=== PATIENT | male | born 1965 | race Caucasian/White ===

== ENCOUNTER 2025-03-28 09:07 | Outpatient (RCR) | payer MEDICAID, SELFPAY ==
--- NOTE | 2025-03-28 09:39 | PTNOTE_ITS ---
PT OP Initial Eval Patient Information Outpatient Physical Therapy Treatment Date: 03/28/25 Visit Reasons: RIGHT SHOULDER SURGERY Medical Diagnosis: S43.431D Z47.89 M25.511 Treatment Dx #1: R shoulder pain Treatment Dx #2: Decreased R shoulder ROM Start of Care: 03/28/25 Date of Onset: 02/14/25 Smoking Status Smoking Status: Never smoker Initial Assessment Subjective: Pt is 59 yr old male s/p R shoulder SAD, SLAP debridement, acromioplasty debridement of tears, transtendinous repair supraspinatus tendon, biceps tenodesis. He is moving the R shoulder with low pain level but it hurts reaching up to the side. PMH: CVA, HTN, A-fib Pt goal: to reach up and not hurt? Objective: R shoulder ArOM: FF: 90 deg Abd: 90 deg limited by pain ER: 78 deg Strength: NT Assessment: Pt presentation consistent wtih referring Dx with decreased ROM, strength and function of R shoulder. Pt requires skilled therapy to meet goals and has fair rehab potential. Short Term and Foam Cutting Supervisor Goals 1. Ind with HEP ? 2. Improved AROM of R shoulder to at least 135 deg FF, 125 deg abduction and 90 deg ? ER ? 3. Improved HBB ROM to L3 4. Pt will reach OH x10 with <=4/10 pain Treatment Plan ? 1. Manual therapy ? 2. Therex ? 3. Modalities as indicated, moist heat, ice, estim Frequency and Duration: 2x a week for 8 weeks Certification Dates: 03/28/25 to 06/28/25 Procedure Charges OP PT Eval Mod Complex 30 minutes: Yes
== END 2025-04-01 23:59 | disposition home or self-care (01) ==
LOC: CPTX 09:07
PROVIDERS: PCP Orthopaedic Surgery; Referring Provider Orthopaedic Surgery; Visit Provider Orthopaedic Surgery
DX: M25.511 Pain in right shoulder (principal); S43.431D Superior glenoid labrum lesion of right shoulder, subsequent encounter; X58.XXXD Exposure to other specified factors, subsequent encounter; I10 Essential (primary) hypertension
CPT/HCPCS: 97162

== ENCOUNTER 2025-05-01 09:00 | Outpatient (RCR) | payer MEDICAID, SELFPAY ==
--- NOTE | 2025-04-04 17:48 | PT.ODAYNRPT ---
PT Outpatient Daily Note OP Daily Note Outpatient Physical Therapy Treatment Date: 04/04/25 Visit Reasons: right shoulder surgery Subjective: Pain with abduction Objective: See F/S for therex Assessment: Pain limits abduction ROM with AAROM therex to about 90 deg Plan: Continue per POC Length of Time (minutes) of Treatment: 30 Minutes Procedure Charges Therapeutic Exercise 30 minutes: Yes
--- NOTE | 2025-04-06 09:48 | PT.ODAYNRPT ---
PT Outpatient Daily Note OP Daily Note Outpatient Physical Therapy Treatment Date: 04/06/25 Visit Reasons: right shoulder surgery Subjective: Pain with abduction Objective: See F/S for therex MT: PROM into FF and abduction x7' PROM: FF: 110 deg Assessment: Pain limits abduction ROM with AAROM therex to about 90 deg. Plan: Continue per POC Length of Time (minutes) of Treatment: 30 Minutes Procedure Charges Therapeutic Exercise 30 minutes: Yes
--- NOTE | 2025-04-11 09:49 | PT.ODAYNRPT ---
PT Outpatient Daily Note OP Daily Note Outpatient Physical Therapy Treatment Date: 04/11/25 Visit Reasons: right shoulder surgery Subjective: Pt reports R shoulder is moving better but still painful. Objective: Please see flow sheet for ther ex list. Assessment: Isometric shoulder interventions completed with minimal pain. Plan: Assess response to treatment. Length of Time (minutes) of Treatment: 30 Minutes Procedure Charges Therapeutic Exercise 30 minutes: Yes
--- NOTE | 2025-04-13 09:42 | PT.ODAYNRPT ---
PT Outpatient Daily Note OP Daily Note Outpatient Physical Therapy Treatment Date: 04/13/25 Visit Reasons: right shoulder surgery Subjective: Pt reports shoulder has been hurting. Objective: Please see flow sheet for ther ex list. Assessment: Continue with focus on restoring ROM within protocol. Plan: Continue with POC. Length of Time (minutes) of Treatment: 30 Minutes Procedure Charges Therapeutic Exercise 30 minutes: Yes
--- NOTE | 2025-04-25 10:15 | PT.ODAYNRPT ---
PT Outpatient Daily Note OP Daily Note Outpatient Physical Therapy Treatment Date: 04/25/25 Visit Reasons: right shoulder surgery Subjective: Pain with reaching to the side into abduction Objective: See F/S for therex PROM: FF: 110 deg Assessment: Pain limits abduction ROM with AAROM therex to about 90 deg. Plan: Continue per POC Length of Time (minutes) of Treatment: 30 Minutes Procedure Charges Therapeutic Exercise 30 minutes: Yes
--- NOTE | 2025-04-27 10:07 | PT.ODAYNRPT ---
PT Outpatient Daily Note OP Daily Note Outpatient Physical Therapy Treatment Date: 04/27/25 Visit Reasons: right shoulder surgery Subjective: Pt reports his shoulder continues to be painful and weak, difficulty reaching over head. Objective: Please see flow sheet for ther ex list. Assessment: Pt demonstrates poor RTC muscle recruitment. Plan: Continue with POC. Length of Time (minutes) of Treatment: 30 Minutes Procedure Charges Therapeutic Exercise 30 minutes: Yes
--- NOTE | 2025-05-01 09:58 | PT.ODAYNRPT ---
PT Outpatient Daily Note OP Daily Note Outpatient Physical Therapy Treatment Date: 05/01/25 Visit Reasons: right shoulder surgery Subjective: Pain with reaching to the side into abduction Objective: See F/S for therex PROM: FF: 110 deg Assessment: Slow progress with goals due to pain and tightness limits all ROM. Plan: Continue per POC Length of Time (minutes) of Treatment: 30 Minutes Procedure Charges Therapeutic Exercise 30 minutes: Yes
== END 2025-05-01 23:59 | disposition home or self-care (01) ==
LOC: CPTX 09:00
PROVIDERS: PCP Orthopaedic Surgery; Referring Provider Orthopaedic Surgery; Visit Provider Orthopaedic Surgery
DX: M25.511 Pain in right shoulder (principal); S43.431D Superior glenoid labrum lesion of right shoulder, subsequent encounter; X58.XXXD Exposure to other specified factors, subsequent encounter; I10 Essential (primary) hypertension
CPT/HCPCS: 97110

== ENCOUNTER 2025-05-15 09:29 | Outpatient (RCR) | payer MEDICAID, SELFPAY ==
--- NOTE | 2025-05-15 11:41 | PT.ODAYNRPT ---
PT Outpatient Daily Note OP Daily Note Outpatient Physical Therapy Treatment Date: 05/15/25 Visit Reasons: right shoulder surgery Subjective: Pain with reaching to the side into abduction Objective: See F/S for therex PROM: FF: 110 deg Abd: 95 deg Assessment: Slow progress with goals due to pain and tightness limits all ROM. Plan: Continue per POC Length of Time (minutes) of Treatment: 30 Minutes Procedure Charges Therapeutic Exercise 30 minutes: Yes
--- NOTE | 2025-06-06 09:26 | PT.ODS1RPT ---
PT OP Progress/Discharge Note Date of Service: 06/06/25 Progress Note/DC Note Progress Note/Discharge Note: DC Note Patient Information Visit Reasons: right shoulder surgery Service Continue Service or Discharge: Discharge Discharge Date: 06/06/25 Status Assessment: Pt attended the initial evaluation and 8 Rx visits and then called to say he fell and hurt his back and MD recommended to stop therapy at this time. Thank you for your referrals. Plan: D/C
== END 2025-06-01 23:59 | disposition home or self-care (01) ==
LOC: CPTX 09:29
PROVIDERS: PCP Orthopaedic Surgery; Referring Provider Orthopaedic Surgery; Visit Provider Orthopaedic Surgery
DX: M25.511 Pain in right shoulder (principal); S43.431D Superior glenoid labrum lesion of right shoulder, subsequent encounter; X58.XXXD Exposure to other specified factors, subsequent encounter; I10 Essential (primary) hypertension
CPT/HCPCS: 97110

== ENCOUNTER 2025-05-18 08:20 | Emergency (ER) | payer MEDICAID, SELFPAY ==
[2025-05-18 08:21] VITALS: BMI 32.3
[2025-05-18 08:27] VITALS: BP 138/90; PULSE 49; RESP 18; TEMP 36.5; O2SAT 97
--- NOTE | 2025-05-18 08:34 | XR_ITS ---
Examination: CT right hip, pelvis, without contrast. 2-D sagittal reconstructions. 2-D coronal reconstructions. 3-D reconstructions. Date and time of exam:May 18, 2025 0902 hours INDICATIONS: Patient fell today with injury to the right hip, right hip pain CTDI: vol (mGy):8.75 DLP: (mGycm):1077 Technique: Multiple 1.25 mm axial sections of the pelvis right hip have been obtained. 2-D sagittal and coronal reconstructions have been obtained. 3-D reconstructions have been obtained. Low dose protocols were performed. One or more of the following dose reduction techniques were used; automated exposure control, adjustment of the mA and/or KV according to patient size, use of iterative reconstruction technique. Findings: Iliac bones acetabular regions anterior rami intact No acute hip fractures Large fat-containing anterior abdominal wall hernia defect Urinary bladder intact No soft tissue hematoma depicted IMPRESSION: No acute hip or pelvic fracture
--- NOTE | 2025-05-18 08:34 | XR_ITS ---
Examination:Right hip AP, lateral, AP pelvis 3 views Technique: Hip AP lateral, AP pelvis, 3 views Exam date and time:May 18, 2025 0840 hours INDICATIONS: Patient fell today with into the right hip, right hip pain. FINDINGS: No right hip fracture or dislocation. Left hip bones of the pelvis intact IMPRESSION: No acute hip or pelvic fracture..
--- NOTE | 2025-05-18 09:29 | PD.EDBACK ---
ED Back Injury Pain RME/HPI General Chief Complaint: Back Pain/Injury Stated Complaint: LOWER BACK PAIN S/P FALL LAST NIGHT Time Seen by Provider: 05/18/25 08:35 Arrival date/time: 05/18/25 08:20 59-year-old male who presents to the Emergency Department a significant slip and fall last night patient worsening his right hip patient reports he was not dizzy no chest pain to the fall or after the fall. Patient reports no neck pain and no head or neck injury. Limitations: no limitations Related Data Home Medications ?Medication ?Instructions ?Recorded ?Confirmed gabapentin 300 mg capsule 300 mg PO BID PRN Pain 01/14/22 08/25/23 omeprazole 20 mg capsule,delayed 40 mg PO QDAY 01/14/22 08/25/23 release acetaminophen 650 mg 650 mg PO TID PRN Pain 01/15/23 08/25/23 tablet,extended release famotidine 40 mg tablet 40 mg PO HS 01/15/23 08/25/23 hydrocodone 5 mg-acetaminophen 325 1 tab PO TID PRN Pain 08/25/23 08/25/23 mg tablet linaclotide 145 mcg capsule 145 mcg PO QDAY 08/25/23 08/25/23 (Linzess) Allergies Allergy/AdvReac Type Severity Reaction Status Date / Time No Known Allergies Allergy Verified 05/18/25 08:24 Review of Systems Review of Systems Systems Reviewed: All systems reviewed, normal except as documented Constitutional Constitutional: Reports system reviewed and no additional complaints, except as documented, Denies fever(s) and Denies headache(s) Eyes Eyes: Reports system reviewed and no additional complaints, except as documented and Denies blurry vision ENT Ears, Nose, Mouth, and Throat: Reports system reviewed and no additional complaints, except as documented, Denies headache(s), Denies nasal congestion and Denies nasal discharge Cardiovascular Cardiovascular: Reports system reviewed and no additional complaints, except as documented, Denies chest pain and Denies dyspnea Respiratory Respiratory: Reports system reviewed and no additional complaints, except as documented, Denies chest congestion, Denies cough and Denies dyspnea Gastrointestinal Gastrointestinal: Reports system reviewed and no additional complaints, except as documented and Denies abdominal pain Musculoskeletal Musculoskeletal: Reports system reviewed and no additional complaints, except as documented, Denies abnormal gait, Reports arthralgias (Right hip pain), Denies back pain, Denies deformity, Denies numbness, Reports stiffness and Denies tingling Integumentary/Breasts Skin/Breast: Reports system reviewed and no additional complaints, except as documented and Denies rash Neurologic Neurologic: Reports system reviewed and no additional complaints, except as documented, Reports as per HPI, Denies abnormal gait, Denies headache(s), Denies numbness and Denies tingling Past Medical History Past Medical History NEUROLOGIC: Positive Traumatic Brain Injury; Negative Neurological Disorders, Cerebrovascular Accident, Alzheimer's Disease or Seizures CARDIAC: Positive Cardiac Disorders, Hypercholesterolemia and Hypertension; Negative Myocardial Infarction, Angina or Congestive Heart Failure RESPIRATORY: Positive Asthma; Negative Chronic Obstructive Pulmonary Disease (COPD) or Emphysema GASTROINTESTINAL: Positive Gastrointestinal Disorders, Gall Bladder Disease, Gastroesophageal Reflux Disease and Obesity; Negative Liver Cancer or Hepatitis GENITOURINARY: Positive Kidney Stones; Negative Genitourinary Disorders or Renal Disease REPRODUCTIVE: Negative Fibroids MUSCULOSKELETAL: Positive Musculoskeletal Disorders and Arthritis; Negative Muscular Dystrophy ENT: Negative Blind or Deafness ENDOCRINE: Negative Endocrine Disorders, Diabetes Mellitus Type 1 or Diabetes Mellitus Type 2 HEMATOLOGIC: Negative Sickle Cell Disease OTHER HISTORY: Negative Down Syndrome, Developmental Delay, Blood Transfusions, Blood Transfusion Reaction or Anesthesia Reactions Family History FAMILY HISTORY: Positive Family Cardiac Disorders (HTN, NM) Surgical History SURGICAL: Positive Abdominal Surgery Social History SMOKING STATUS: Never smoker SUBSTANCE USE: marijuana ED Exam General Limitations: Present no limitations General appearance: Present alert and in no apparent distress Head Head exam: Present atraumatic Eye Eye exam: Present normal appearance, PERRL and EOMI ENT ENT exam: Present normal exam, normal oropharynx and mucous membranes moist Neck Neck exam: Present normal inspection, full ROM and trachea midline Chest Chest inspection: Present normal inspection and symmetric chest wall rise Respiratory Respiratory exam: Present normal lung sounds bilaterally Cardiovascular Cardiovascular exam: Present regular rate, normal rhythm and normal heart sounds Abdominal Exam Abdominal exam: Present soft and normal bowel sounds; Absent distention or tenderness Extremities Exam Extremities exam: Present full ROM, tenderness, normal capillary refill and other (Right hip pain) Back Exam Back exam: Present normal inspection and full ROM Neurological Exam Neurological exam: Present alert, oriented X3, CN II-XII intact, normal gait and reflexes normal; Absent motor sensory deficit Psychiatric Psychiatric exam: Present normal affect and normal mood Skin Skin exam: Present warm, dry, intact and normal color Course Quality Measures none Orders Category Date Time Status CT hip RT wo con Stat Exams 05/18/25 08:34 Completed XR hip RT w pelvis 2-3V Stat Exams 05/18/25 08:34 Completed HYDROcodone*/APAP 5/325 [Surf[place] 5/325] Med 05/18/25 09:50 Discontinued 1 tab PO X1 ONE Vital Signs Vital signs: Vital Signs Temperature 97.7 F 05/18/25 08:27 Pulse Rate 49 L 05/18/25 08:27 Respiratory Rate 18 05/18/25 08:27 Blood Pressure 138/90 H 05/18/25 08:27 Pulse Oximetry (%) 97 05/18/25 08:27 Oxygen Delivery Method Room Air 05/18/25 08:27 O2 saturation 97% on room air with normal limits Back Pain / Injury MDM Narrative MDM Narrative:: 59-year-old male who presents to the Emergency Department a significant slip and fall last night patient worsening his right hip patient reports he was not dizzy no chest pain to the fall or after the fall. Patient reports no neck pain and no head or neck injury. On exam patient has tenderness right hip no lower back pain on palpation or on exam Imaging of the pelvis obtained no acute fracture or dislocation noted on x-ray or CT scan Patient given a dose of [place] here patient has Vicodin at home Patient discharged home in no distress to follow-up with primary care doctor in the next 24 to 48 hours and for any worsening symptoms to return to the ER immediately Patient data External records reviewed:: [facility] previous records Clinical information provided by:: patient Social determinants that could affect healthcare access:: none Patient has the following chronic illnesses:: See history How is presenting disease/condition affected by chronic disease/condition?: exacerbated by Evaluation data The following diagnostics were reviewed and interpreted by me:: radiology exam(s) Lab and/or radiology exams considered but not ordered:: Radiology obtain Interpretation Summary: Reviewed by me Medications / Prescriptions Medications or Prescriptions considered but not ordered:: Given Medication administrations:: Medication Administration History Discontinued Medications Hydrocodone Bitart/Acetaminophen (Hydrocodone/Apap 5/325 Tablet) 1 tab PO X1 ONE Stop: 05/18/25 09:51 Last Admin: 05/18/25 09:54 Dose: 1 tab Documented By: Given Consultations Consultation(s) initiated? (list below): No Diagnosis Differential diagnosis back pain/injury: lumbar radiculopathy and strain of lumbar region Most likely diagnosis given after review of the tests above:: Hip pain Admission Indicated Admission indicated?: not indicated Admission Request Was there a request for admission?: No Disposition Plan Disposition Plan: Discharge Discharge Attestation Discharge Attestation: The patient and all family members were given an opportunity to ask questions and understood the discharge instructions. Discharge instructions specifically effects, indications for sooner follow up or return to the emergency department, and the expected course of current diagnosis. Patient condition: Stable Discharge Plan Plan Patient Disposition: HOME (Self Care) Discharge Disposition comment: Stable Prescriptions/Referrals Prescriptions/Med Rec: No Action gabapentin 300 mg Capsule 300 mg PO BID PRN (Reason: Pain) omeprazole 20 mg Capsule,Delayed Release(Dr/Ec) 40 mg PO QDAY hydrocodone-acetaminophen 5-325 mg tablet 1 tab PO TID PRN (Reason: Pain) Patient Comments: TAKE ONE TABLET BY MOUTH THREE TIMES DAILY NEEDED FOR PAIN Linzess 145 mcg capsule 145 mcg PO QDAY Patient Comments: TAKE ONE CAPSULE BY MOUTH 30 MINUTES BEFORE FIRST meal famotidine 40 mg tablet 40 mg PO HS acetaminophen 650 mg tablet extended release 650 mg PO TID PRN (Reason: Pain) Referrals: Jennifer Andre FNP [Primary Care Provider] - In 1 week Problem List Clinical Impression: Contusion of hip, right, Fall Patient/Caregiver Discharge Instructions Education Materials: Bruises (Contusions) Additional Instructions: Please follow up with your primary care doctor in the next 24-48hrs for any worsening symptoms return here immediately Print Language: Welsh Stand Alone Forms: Annmarie Award Info., Patient Portal Info Letter PA/SLEEPING ROOM CLEANER Supervising Physician MAGEN/SLEEPING ROOM CLEANER Supervising Physician: Dr. garland
[2025-05-18] MEDS: HYDROcodone/APAP 5/325 TABLET 1 TAB PO (09:54)
== END 2025-05-18 09:56 | disposition home or self-care (01) ==
PROVIDERS: Emergency Provider Family Medicine; PCP Registered Nurse Community Health
DX: S70.01XA Contusion of right hip, initial encounter (principal); W01.0XXA Fall on same level from slipping, tripping and stumbling without subsequent striking against object, initial encounter
CPT/HCPCS: 73502; 73700; 99283; A9270

== ENCOUNTER → 2025-10-19 | Outpatient (CLI) | payer MEDICAID, SELFPAY ==
--- NOTE | 2025-10-19 10:45 | XR_ITS ---
Examination: CT brain head without contrast. 2-D sagittal coronal reconstructions Date and time of exam: October 19, 2025, 10:13 a.m., comparison August 30, 2023 INDICATIONS: Diagnosis cerebral infarction, more pronounced dizziness beginning 1 year ago, history of stroke 2 years ago CTDI: vol (mGy): 52.1 DLP: (mGycm): 1051 Technique: Multiple CT axial sections of the brain have been obtained, 5 mm slice thickness. Contrast has not been administered. 2-D sagittal, coronal reconstructions have been obtained Low dose protocols were performed. One or more of the following dose reduction techniques were used; automated exposure control, adjustment of the mA and/or KV according to patient size, use of iterative reconstruction technique. Findings: No significant ventricular enlargement. Old infarct left middle cerebral artery distribution Intra-axial or extra-axial hemorrhage density is not seen. No mass effect or midline shift Basal cisterns are not remarkable. Fourth ventricle is midline. Cranial vault intact. Impression: Negative for acute hemorrhage, mass effect or midline shift Advise clinical correlation and follow-up accordingly
== END | disposition home or self-care (01) ==
LOC: CCTX 09:51
PROVIDERS: PCP Psychiatry & Neurology Neurology; Referring Provider Psychiatry & Neurology Neurology; Visit Provider Psychiatry & Neurology Neurology
DX: I63.9 Cerebral infarction, unspecified (principal)
CPT/HCPCS: 70450